=== PATIENT | female | born 1950 | race Caucasian/White ===

== ENCOUNTER → 2025-01-21 | Outpatient (CLI) | payer MEDICARE, BC ==
[~2025-01-21] MED LIST: ACET650T15 PO; DRON400T; ELIQ5TAB; LIDO30CR18 TOP; METO50TA7; ONDA-84 PO; PROC10TA5 PO
[2025-01-21 11:36] VITALS: TEMP 97.8
[2025-01-21 12:57] LABS: PH BODY FLUID 7.536 UNITS (NOT ESTABLISHED); SOURCE, BODY FLUID pH ASCITES
[2025-01-21 13:14] LABS: SOURCE, BODY FLUID ASCITES
[2025-01-21 13:15] LABS: APPEARANCE, BODY FLUID HAZY (CLEAR); ASCITES FL COLOR RED (COLORLESS)
[2025-01-21 13:30] VITALS: BP 136/69; O2SAT 95
== END ==
LOC: M IRPRO 11:09
PROVIDERS: ATTEND Internal Medicine Medical Oncology
DX: R18.8 Other ascites (principal)

== ENCOUNTER → 2025-01-24 | Outpatient (CLI) | payer MEDICARE, BC ==
[~2025-01-24] MED LIST changes: +DULO30CA9 PO; +HYDR-4571 PO; +PROHANCE 279.3MG/ML 15ML VIAL ONE; +PROHANCE 279.3MG/ML 5ML VIAL ONE; +TRAZ-252 PO
== END ==
LOC: M PLAIMG 11:48
PROVIDERS: ATTEND Internal Medicine Medical Oncology
DX: C55 Malignant neoplasm of uterus, part unspecified (principal); Z51.5 Encounter for palliative care; Z66 Do not resuscitate; C78.6 Secondary malignant neoplasm of retroperitoneum and peritoneum; Z79.891 Long term (current) use of opiate analgesic; I48.91 Unspecified atrial fibrillation; K21.9 Gastro-esophageal reflux disease without esophagitis; K57.90 Diverticulosis of intestine, part unspecified, without perforation or abscess without bleeding; I51.3 Intracardiac thrombosis, not elsewhere classified; R19.7 Diarrhea, unspecified; G47.00 Insomnia, unspecified; Z79.899 Other long term (current) drug therapy; Z88.2 Allergy status to sulfonamides
CPT/HCPCS: 70553; A9576; G0463

== ENCOUNTER → 2025-01-24 | Outpatient (CLI) | payer MEDICARE, BC ==
[~2025-01-24] VITALS: Ht 157.5 cm; Wt 96.9 kg
[~2025-01-24] MED LIST changes: -PROHANCE 279.3MG/ML 15ML VIAL ONE; -PROHANCE 279.3MG/ML 5ML VIAL ONE
[2025-01-24 14:39] VITALS: BP 118/82; O2SAT 97
== END ==
LOC: M PAL 14:10
PROVIDERS: ATTEND Physician Assistant
DX: Z51.5 Encounter for palliative care (principal); Z66 Do not resuscitate; C78.6 Secondary malignant neoplasm of retroperitoneum and peritoneum; Z79.891 Long term (current) use of opiate analgesic; I48.91 Unspecified atrial fibrillation; K21.9 Gastro-esophageal reflux disease without esophagitis; K57.90 Diverticulosis of intestine, part unspecified, without perforation or abscess without bleeding; I51.3 Intracardiac thrombosis, not elsewhere classified; R19.7 Diarrhea, unspecified; G47.00 Insomnia, unspecified; Z79.899 Other long term (current) drug therapy; Z88.2 Allergy status to sulfonamides

== ENCOUNTER → 2025-01-28 | Outpatient (CLI) | payer MEDICARE, BC | LOC: M PLARAD 12:20 | PROVIDERS: ATTEND Internal Medicine Medical Oncology | DX: C54.1 Malignant neoplasm of endometrium (principal); J90 Pleural effusion, not elsewhere classified | CPT/HCPCS: 78815; A9552 ==

== ENCOUNTER → 2025-01-29 | Outpatient (CLI) | payer MEDICARE | LOC: M ONCM 12:07 | PROVIDERS: ATTEND Dietitian, Registered | DX: C78.6 Secondary malignant neoplasm of retroperitoneum and peritoneum (principal); C54.1 Malignant neoplasm of endometrium; Z71.2 Person consulting for explanation of examination or test findings; Z68.38 Body mass index [BMI] 38.0-38.9, adult ==

== ENCOUNTER → 2025-02-12 | Outpatient (CLI) | payer MEDICARE, BC ==
[~2025-02-12] MED LIST changes: +GABA-284 PO; +LOMO2.5T PO; +OLAN1TAB16 PO; +PANT20TA6 PO
== END ==
LOC: M ONCM 07:12
PROVIDERS: ATTEND Dietitian, Registered
DX: C55 Malignant neoplasm of uterus, part unspecified (principal); C78.6 Secondary malignant neoplasm of retroperitoneum and peritoneum; Z71.3 Dietary counseling and surveillance; Z68.41 Body mass index [BMI] 40.0-44.9, adult

== ENCOUNTER → 2025-02-13 | Outpatient (CLI) | payer MEDICARE, BC ==
[~2025-02-13] VITALS: Ht 157.5 cm; Wt 88.5 kg
[2025-02-13 15:15] VITALS: BP 140/84; O2SAT 96
== END ==
LOC: M PAL 14:47
PROVIDERS: ATTEND Physician Assistant
DX: Z51.5 Encounter for palliative care (principal); Z66 Do not resuscitate; Z79.891 Long term (current) use of opiate analgesic; C78.6 Secondary malignant neoplasm of retroperitoneum and peritoneum; R11.0 Nausea; K21.00 Gastro-esophageal reflux disease with esophagitis, without bleeding

== ENCOUNTER → 2025-02-26 | Outpatient (CLI) | payer MEDICARE, BC | LOC: M ONCM 15:10 | PROVIDERS: ATTEND Dietitian, Registered | DX: C54.1 Malignant neoplasm of endometrium (principal); C78.6 Secondary malignant neoplasm of retroperitoneum and peritoneum; Z71.3 Dietary counseling and surveillance; Z68.35 Body mass index [BMI] 35.0-35.9, adult ==

== ENCOUNTER → 2025-03-04 | Outpatient (CLI) | payer MEDICARE, BC | LOC: M PAL 10:27 | PROVIDERS: ATTEND Physician Assistant | DX: Z51.5 Encounter for palliative care (principal); Z66 Do not resuscitate; C78.6 Secondary malignant neoplasm of retroperitoneum and peritoneum; Z88.2 Allergy status to sulfonamides; Z79.899 Other long term (current) drug therapy ==

== ENCOUNTER → 2025-05-28 | Outpatient (CLI) | payer MEDICARE, BC ==
[~2025-05-28] MED LIST changes: +ACET-1515 PO; -ACET650T15 PO; +CYMB1CAP5 PO; +FLUO1OPD; +LEVO1TAB40 PO; +MAGN400T33 PO; +METR-265 PO
== END ==
LOC: M PAL 10:50
PROVIDERS: ATTEND Physician Assistant
DX: Z51.5 Encounter for palliative care (principal); Z66 Do not resuscitate; C54.1 Malignant neoplasm of endometrium; C78.6 Secondary malignant neoplasm of retroperitoneum and peritoneum; Z79.891 Long term (current) use of opiate analgesic; Z88.2 Allergy status to sulfonamides; Z79.899 Other long term (current) drug therapy

== ENCOUNTER → 2025-06-04 | Outpatient (CLI) | payer MEDICARE, BC | LOC: M PAL 15:27 | PROVIDERS: ATTEND Physician Assistant | DX: Z51.5 Encounter for palliative care (principal); Z66 Do not resuscitate; C54.1 Malignant neoplasm of endometrium; C78.6 Secondary malignant neoplasm of retroperitoneum and peritoneum; Z79.891 Long term (current) use of opiate analgesic; Z88.2 Allergy status to sulfonamides; Z79.899 Other long term (current) drug therapy ==

== ENCOUNTER → 2025-06-20 | Outpatient (CLI) | payer MEDICARE, BC ==
[~2025-06-20] MED LIST changes: +ISOVUE-300 61% 100 ML VIAL As Ordered ONE; +LIDOCAINE 1% MDV 20 ML VIAL As Ordered ONE
[2025-06-20 08:35] VITALS: BP 110/66; TEMP 97.7; O2SAT 98
== END ==
LOC: M IRPRO 08:27
PROVIDERS: ATTEND Radiology Diagnostic Radiology
DX: K65.1 Peritoneal abscess (principal)
CPT/HCPCS: 49424; 76080; Q9967

== ENCOUNTER 2025-06-25 16:36 | Observation (INO) | payer MEDICARE, BC ==
[~2025-06-25] VITALS: Ht 162.6 cm; Wt 65.9 kg
[~2025-06-25 16:36] MED LIST changes: -ISOVUE-300 61% 100 ML VIAL As Ordered ONE; -LIDOCAINE 1% MDV 20 ML VIAL As Ordered ONE
[2025-06-25 18:43] LABS: BASO # 0.1 10^3/uL (0.0-0.2); BASO % 1.0 % (0.0-1.0); EOS # 0.1 10^3/uL (0.0-0.5); EOS % 1.6 % (0.0-3.0); LYMPH # 1.3 10^3/uL (1.5-5.0); LYMPH % 25.7 % (24.0-44.0); MONO # 0.6 10^3/uL (0.0-0.8); MONO % 11.9 % (2.0-8.0); NEUTROPHILS # 3.1 10^3/uL (1.5-8.5); NEUTROPHILS % 59.4 % (36.0-66.0); PLATELET COUNT, AUTOMATED 314 10^3/uL (150-450)
[2025-06-25] MEDS: NS (Normal Saline) 0.9% 1,000 ML IV ONE (18:49)
[2025-06-25 18:57] LABS: INR 1.71
[2025-06-25 19:08] LABS: ALT/SGPT 17.0 U/L (7.0-40); AST/SGOT 24.0 U/L (<34); C REACTIVE PROTEIN QUANTITATIV 0.63 MG/DL (<1.0); CALCIUM LEVEL 8.4 MG/DL (8.3-10.6); CARBON DIOXIDE LEVEL 27.0 MMOL/L (20-31); CHLORIDE LEVEL 103.0 MMOL/L (98-107); CREATININE FOR GFR 0.97 MG/DL (0.55-1.30); GLOMERULAR FILTRATION RATE 61.7 (>39); MAGNESIUM LEVEL 1.7 MG/DL (1.8-2.4); POTASSIUM SERUM 3.0 MMOL/L (3.5-5.1); SODIUM LEVEL 141.0 MMOL/L (136-145)
[2025-06-25] MEDS: HEPARIN LOCK FLUSH 100 UNITS/ML 3 ML SYRINGE IV SCH (19:30)
[2025-06-25] MEDS: SODIUM CHLORIDE 0.9% INJ 10 ML SYR IV SCH (19:30)
[2025-06-25] MEDS: KCL 10MEQ/100ML SWI (KRUN) 10 MEQ in IV 1 EA IV ONE (20:19)
[2025-06-25] MEDS ORDERED: METO1TAB87 PO (20:24)
[2025-06-25] MEDS ORDERED: MAGN400T2 PO (20:24)
[2025-06-25] MEDS ORDERED: LOPE2TAB12 PO (20:25)
[2025-06-25] MEDS ORDERED: MED REC COMMENT (20:26)
[2025-06-25] MEDS ORDERED: HOME MED LIST COMPLETE! XX SCH (20:30)
[2025-06-25] MEDS: NS (Normal Saline) 0.9% 1,000 ML IV SCH (22:28)
[2025-06-25] MEDS: MAG SULF 1GM/100ML (MAG RUN) 1 GM in IV 1 EA IV ONE (22:28)
[2025-06-26 04:50] VITALS: BP 115/76; TEMP 97.1; O2SAT 97
[2025-06-26] MEDS ORDERED: LOPERAMIDE 2 MG CAPLET PO PRN (06:40)
[2025-06-26] MEDS ORDERED: ONDANSETRON 4MG TAB PO PRN (06:40)
[2025-06-26] MEDS ORDERED: PROCHLORPERAZINE 5MG TAB PO PRN (06:40)
[2025-06-26 07:14] LABS: PLATELET COUNT, AUTOMATED 310 10^3/uL (150-450)
[2025-06-26 07:37] LABS: CALCIUM LEVEL 8.2 MG/DL (8.3-10.6); CARBON DIOXIDE LEVEL 26.0 MMOL/L (20-31); CHLORIDE LEVEL 106.0 MMOL/L (98-107); CREATININE FOR GFR 0.92 MG/DL (0.55-1.30); GLOMERULAR FILTRATION RATE 65.8 (>39); MAGNESIUM LEVEL 1.8 MG/DL (1.8-2.4); POTASSIUM SERUM 3.5 MMOL/L (3.5-5.1); SODIUM LEVEL 141.0 MMOL/L (136-145)
[2025-06-26] MEDS: APIXABAN 5 MG TAB PO SCH (08:53)
[2025-06-26] MEDS: MAGNESIUM OXIDE 400 MG TAB PO SCH (08:53)
[2025-06-26] MEDS: PANTOPRAZOLE 20 MG TAB PO SCH (08:53)
[2025-06-26] MEDS: POTASSIUM CHLORIDE 10MEQ SR TABLET PO ONE (08:54)
[2025-06-26 10:07] VITALS: BP_SYST 107; BP_SYST 112; BP_SYST 98; BP_DIAS 53; BP_DIAS 58; BP_DIAS 59
== END 2025-06-26 13:30 | disposition home or self-care (01) ==
LOC: M ED 16:36 → M ED INP 21:43 → M MS4PR 06-26 04:51
PROVIDERS: ADMIT Student in an Organized Health Care Education/Training Program; ATTEND Student in an Organized Health Care Education/Training Program
DX: I95.89 Other hypotension (principal); E83.42 Hypomagnesemia; E87.6 Hypokalemia; Z79.01 Long term (current) use of anticoagulants; Z79.899 Other long term (current) drug therapy; I10 Essential (primary) hypertension; I48.91 Unspecified atrial fibrillation; K21.9 Gastro-esophageal reflux disease without esophagitis; F39 Unspecified mood [affective] disorder; Z85.42 Personal history of malignant neoplasm of other parts of uterus; C78.6 Secondary malignant neoplasm of retroperitoneum and peritoneum
CPT/HCPCS: 36415; 80048; 80076; 83605; 83735; 84145; 85025; 85027; 85610; 85730; 86140; 86850; 86900; 86901; 87040; 93005; 93041; 94760; 96361; 96374; 97161; 97165; 97530; 99285; G0378; G0463; J3475

== ENCOUNTER → 2025-07-29 | Outpatient (CLI) | payer MEDICARE, BC ==
[~2025-07-29] MED LIST changes: +ISOVUE-370 76% 100 ML VIAL As Ordered ONE; +LOPE2TAB12 PO; +MAGN400T2 PO; +MED REC COMMENT; +METO1TAB87 PO
== END ==
LOC: M RAD 09:49
PROVIDERS: ATTEND Internal Medicine Medical Oncology
DX: C55 Malignant neoplasm of uterus, part unspecified (principal); R91.1 Solitary pulmonary nodule; Z95.828 Presence of other vascular implants and grafts
CPT/HCPCS: 71260; 74177; Q9967